=== PATIENT | male | born 1965 | race Caucasian/White ===

== ENCOUNTER 2016-06-26 19:50 | Emergency (ER) | payer OTHER | END 2016-06-26 21:37 | disposition other institution (70) | LOC: ED 19:50 | DX: Z02.89 Encounter for other administrative examinations (principal) ==

== ENCOUNTER 2016-06-26 19:50 | Emergency (ER) | payer OTHER ==
[2016-06-26 21:35] VITALS: BP 150/98
== END 2016-06-26 21:37 | disposition other institution (70) ==
LOC: ED 19:50
DX: I10 Essential (primary) hypertension (principal); I48.91 Unspecified atrial fibrillation
CPT/HCPCS: J2060